=== PATIENT | male | born 1965 | race Caucasian/White ===

== ENCOUNTER 2018-08-28 22:22 | Emergency (ER) | payer OTHER ==
[~2018-08-28] VITALS: Ht 170.2 cm; Wt 70.3 kg
[~2018-08-28 22:22] MED LIST: Amitriptyline H50 MG PO; DULO60; HYDACE5 PO; IBUP600 PO; MUPI2TO TOP; Percocet 5-3251 EACH PO; QUET100 PO; SULTRIDS PO
[2018-10-10] MEDS ORDERED: VARE1 (14:21)
== END 2018-08-28 23:44 | disposition left against medical advice (07) ==
LOC: ER 22:22
DX: Z53.21 Procedure and treatment not carried out due to patient leaving prior to being seen by health care provider (principal)

== ENCOUNTER → 2020-09-11 | Outpatient (CLI) | payer OTHER ==
[~2020-09-11] MED LIST changes: +VARE1
[2020-09-11 14:17] LABS: Stool Occult Bld Immuno 1 Negative (NEGATIVE)
== END ==
LOC: LAB SHORT 08:00 → LAB 08:00 → LAB FUT 09-02 14:55 → EDSTATUS 09-02 14:55
PROVIDERS: Nurse Practitioner Family
DX: Z12.11 Encounter for screening for malignant neoplasm of colon (principal)
CPT/HCPCS: G0328